=== PATIENT | female | born 1970 | race Caucasian/White ===

== ENCOUNTER 2017-01-06 13:05 | Day surgery (SDC) | payer MEDICARE, MEDICAID ==
[~2017-01-06] VITALS: Ht 162.6 cm; Wt 131.1 kg
== END 2017-01-06 15:47 | disposition home or self-care (01) ==
LOC: SSS 13:05
PROC: 3E0T33Z Introduction of Anti-inflammatory into Peripheral Nerves and Plexi, Percutaneous Approach (ICD-10-PCS; principal; 2017-01-06)
PROC: BR16YZZ Fluoroscopy of Lumbar Facet Joint(s) using Other Contrast (ICD-10-PCS; principal; 2017-01-06)
PROC: 3E0T3BZ Introduction of Anesthetic Agent into Peripheral Nerves and Plexi, Percutaneous Approach (ICD-10-PCS; principal; 2017-01-06)
DX: M47.817 Spondylosis without myelopathy or radiculopathy, lumbosacral region (principal); F17.200 Nicotine dependence, unspecified, uncomplicated; E11.9 Type 2 diabetes mellitus without complications; Z79.899 Other long term (current) drug therapy; Z79.891 Long term (current) use of opiate analgesic